=== PATIENT | female | born 1985 | race Caucasian/White ===

== ENCOUNTER → 2021-11-02 | Outpatient (CLI) | payer BC | END | disposition home or self-care (01) | LOC: LAB 20:56 | PROVIDERS: ATTEND Emergency Medicine | DX: Z53.9 Procedure and treatment not carried out, unspecified reason (principal) ==

== ENCOUNTER 2021-11-08 12:16 | Emergency (ER) | payer BC ==
[2021-11-08 12:38] VITALS: BP 132/89; PULSE 91; RESP 16; TEMP 97.6
[2021-11-08] MEDS ORDERED: Rhogam IMMUNE GLOBULIN 1,500 UNIT/1 ML IM ONE (13:02)
[2021-11-08 13:32] LABS: Appearance,Urine Clear (Clear); Bilirubin,Urine Negative (Negative); Blood,Urine Negative (Negative); Color,Urine Colorless; Glucose,Urine (UA) Negative (Negative); Ketones,Urine 1+ (Negative); Leukocyte Esterase,Urine Negative (Negative); Nitrite,Urine Negative (Negative); Protein,Urine Negative (Negative); Specific Gravity,Urine 1.006 (1.001-1.035); Urobilinogen,Urine <2.0 mg/dL (<2.0)
--- NOTE | 2021-11-08 13:59 | ED ---
Female Urogenital HPI - General Chief complaint: Vaginal Bleeding Stated complaint: 5 weeks ,COVID +,Bleeding and cramping Time Seen by Provider: 11/08/21 12:41 Source: patient, RN notes reviewed Limitations: no limitations - History of Present Illness Initial comments: This a 36-year-old female presents emergency Department chief complaint of vaginal bleeding early . 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 She is O- blood type. 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 She states she's on his symptoms for 24 hours mild nasal congestion cough, body aches. Patient states she's not receive RhoGAM for this . Patient states the bleeding is very mild denies any significant abdominal pain. Patient offers no complaints. - Related Data Previous Rx's Medication Instructions Recorded predniSONE 40 mg PO DAILY #8 tab 12/21/13 Allergies Allergy/AdvReac Type Severity Reaction Status Date / Time ofloxacin [From Floxin] Allergy Unknown Verified 11/08/21 12:38 Childhood Review of Systems ROS Statement: Those systems with pertinent positive or pertinent negative responses have been documented in the HPI. ROS Other: All systems not noted in ROS Statement are negative. Past Medical History Past Medical History: No Reported History History of Any Multi-Drug Resistant Organisms: None Reported Past Surgical History: Cholecystectomy, Tonsillectomy Additional Past Surgical History / Comment(s): IUD Past Psychological History: No Psychological Hx Reported Smoking Status: Never smoker Past Alcohol Use History: None Reported Past Drug Use History: None Reported General Exam Limitations: no limitations General appearance: alert, in no apparent distress Head exam: Present: atraumatic, normocephalic, normal inspection Neck exam: Present: normal inspection, full ROM. Absent: tenderness, meningismus, lymphadenopathy Respiratory exam: Present: normal lung sounds bilaterally. Absent: respiratory distress, wheezes, rales, rhonchi, stridor Cardiovascular Exam: Present: regular rate, normal rhythm, normal heart sounds. Absent: systolic murmur, diastolic murmur, rubs, gallop, clicks GI/Abdominal exam: Present: soft, normal bowel sounds. Absent: distended, tenderness, guarding, rebound, rigid Back exam: Absent: CVA tenderness (R), CVA tenderness (L) Neurological exam: Present: alert Skin exam: Present: warm, dry, intact, normal color. Absent: rash Course Vital Signs 11/08/21 12:32 Temperature 97.6 F Pulse Rate 91 Respiratory 16 Rate Blood Pressure 132/89 O2 Sat by Pulse 100 Oximetry Medical Decision Making - Medical Decision Making 36-year-old presented for vaginal bleeding early . Patients HCG continues to climb. Ultrasound shows possible early . Patient is diagnosed with threatened miscarriage. She'll have repeat hCG she was given RhoGAM. Return parameters discussed. - Lab Data Lab Results 11/08/21 11/08/21 11/08/21 Range/Units 13:05 13:14 13:15 HCG, Quant 1880.7 mIU/mL Urine Color Colorless Urine Appearance Clear (Clear) Urine pH 6.0 (5.0-8.0) Ur Specific [place] 1.006 (1.001-1.035) Urine Protein Negative (Negative) Urine Glucose (UA) Negative (Negative) Urine Ketones 1+ H (Negative) Urine Blood Negative (Negative) Urine Nitrite Negative (Negative) Urine Bilirubin Negative (Negative) Urine Urobilinogen <2.0 (<2.0) mg/dL Ur Leukocyte Esterase Negative (Negative) Blood Type O Negative Blood Type Recheck O Neg Bld Type Recheck Status No Antibody Screen NEGATIVE Spec Expiration Date 11/11/20212304 Disposition Clinical Impression: Threatened miscarriage in early Disposition: HOME SELF-CARE Condition: Stable Instructions (If sedation given, give patient instructions): Threatened Miscarriage (ED) Additional Instructions: Please return to the Emergency Department if symptoms worsen or any other concerns. Is patient prescribed a controlled substance at d/c from ED?: No Referrals: Magali Raymundo NPC [Nurse Practitioner] - 1-2 days Time of Disposition: 14:35
--- NOTE | 2021-11-08 14:24 | US ---
EXAMINATION TYPE: Transabdominal DATE OF EXAM: 11/08/2021 1:55 PM COMPARISON: NONE CLINICAL HISTORY: Pain, bleeding early Spotting and cramping clomid patient. EXAM PERFORMED: Transvaginal (TV) and Transabdominal (TA) EXAM MEASUREMENTS: GESTATIONAL AGE / DATING Physician Established: Not yet established Dates by LMP: ( 5 weeks/0 days) EDC: 07/11/2022 Dates by First Scan: No previous this is first scan Dates by Current Scan for: Unable to date by jeannine rojas's study MATERNAL ANATOMY Uterus: 9.3 x 4.8 x 6.2 cm Right Ovary: 4.6 x 2.4 x 5.3 cm Left Ovary: 4.7 x 3.5 x 3.9 cm Post CDS / Adnexa: wnl Presence of free fluid: small amount Presence of corpus luteal cyst: yes Presence of subchorionic bleed: no GESTATION / SURVEY CRL: 9 seen with certainty MSD: small fluid-filled sac seen in the endometrium. Beta HcG (if available): Not available at this time IMPRESSION: Small fluid-filled sac in the endometrial. No definite pole. Differential diagnosis would inclu de a normal too early to detect. Ectopic or missed could not be excluded . Correlate with serial beta hCG and pelvic ultrasound as clinically warranted.
== END 2021-11-08 14:39 | disposition home or self-care (01) ==
LOC: EC 12:16
DX: U07.1 COVID-19 (principal); O20.0 Threatened abortion; Z88.1 Allergy status to other antibiotic agents; Z3A.01 Less than 8 weeks gestation of pregnancy
CPT/HCPCS: 36415; 86900; 86901; 86850; 81003; 84702; 76801; 76817; 99284; 96372; J2790

== ENCOUNTER → 2021-11-10 | Outpatient (CLI) | payer BC | END | disposition home or self-care (01) | LOC: LABMAIN 13:46 | PROVIDERS: ATTEND Physician Assistant | DX: O20.0 Threatened abortion (principal); Z3A.00 Weeks of gestation of pregnancy not specified | CPT/HCPCS: 84702 ==

== ENCOUNTER 2022-04-18 23:35 | Outpatient (CLI) | payer BC ==
[2022-04-19] MEDS ORDERED: BETAMET ACET-BETAMETH SOD PHOS 6 MG/ML MDV IM SCH (00:15)
[2022-04-19] MEDS: NIFEdipine 10 MG CAP PO PRN ×3 (00:22→01:02)
[2022-04-19] MEDS: LACTATED RINGERS 1,000 ML IV SCH ×2 (00:23→00:34)
[2022-04-19] MEDS ORDERED: MAGNESIUM SULFATE-WATER PMX 4 GM in WATER FOR INJECTION 1 100ML.BAG IVPB ONE (01:27)
[2022-04-19 01:39] LABS: Appearance,Urine Clear (Clear); Bacteria,Urine Rare /hpf; Bilirubin,Urine Negative (Negative); Blood,Urine Negative (Negative); Color,Urine Light Yellow; Glucose,Urine (UA) Negative (Negative); Ketones,Urine 1+ (Negative); Leukocyte Esterase,Urine Moderate (Negative); Nitrite,Urine Negative (Negative); PH, Urine 6.5 (5.0-8.0); Protein,Urine Negative (Negative); RBC,Urine <1 /hpf (0-5); Specific Gravity,Urine 1.003 (1.001-1.035); Squamous Epithelial Cell,Urine <1 /hpf (0-4); Urobilinogen,Urine <2.0 mg/dL (<2.0); WBC,Urine 1 /hpf (0-5)
[2022-04-19] MEDS ORDERED: MAGNESIUM SULFATE-WATER PMX 20 GM in WATER FOR INJECTION 1 500ML.BAG IV SCH (02:00)
--- NOTE | 2022-04-19 02:18 | P.HPOB ---
History of Present Illness H&P Date: 04/19/22 Chief Complaint: contractions This is a 37 year old 6 para 2031 woman with an estimated due date of 07/11/2022 based on LMP consistent with first trimester ultrasound. She has known diamniotic dichorionic twins. She presents with contractions starting at approximately 9 PM on 04/18/2022. These progressed over approximately 2 hours and she presented to labor and delivery triage. At that time she was found to be osman every 2-3 minutes moderately and her cervix was 1 cm dilated thick and presenting part high. She received IV fluid rehydration and nifedipine tocolysis protocol. She received no relief in contraction frequency and over the course of 90 minutes her cervix changed to 2 cm dilated 50% effaced and presenting part in the -3 station. She received betamethasone upon presentation. Magnesium sulfate loading dose of 4 g was initiated. has been otherwise uncomplicated. She is known are H on negative and did have a positive anti-D antibody in the first trimester that was too weak to titer. She has not received Rh Ig yet. Recent ultrasound dated 04/11/2022 shows breech breech twins with twin a estimated weight 45th percentile and twin B estimated weight 74th percentile. Obstetric history significant for 3 early first trimester miscarriages, term normal spontaneous vaginal deliveries in 2010 and 2012. Laboratory data: Blood type O-, early antibody screen positive, too weak to titer, rubella immune, VDRL nonreactive, hepatitis B surface antigen negative, HIV negative, gonorrhea and clinic cultures negative, cystic fibrosis screening negative, hemoglobin A1c 5.0, maternal T 21 testing negative, glucose tolerance testing within normal limits. Review of Systems All systems: negative Past Medical History Past Medical History: No Reported History History of Any Multi-Drug Resistant Organisms: None Reported Past Surgical History: Cholecystectomy, Tonsillectomy Smoking Status: Never smoker Medications and Allergies Home Medications Medication Instructions Recorded Confirmed Type Aspirin [Vazalore] 162 mg PO DAILY 04/19/22 04/19/22 History Calcium Carbonate/Vitamin D3 1 tab PO DAILY 04/19/22 04/19/22 History [Calcium 500 mg Chewable Tablet] Cholecalciferol (Vitamin D3) 125 mcg PO DAILY 04/19/22 04/19/22 History [Vitamin D3 (125 MCG = 5,000 IU)] Vit No.179/Iron/Folic 1 tab PO DAILY 04/19/22 04/19/22 History [ Tablet] Sertraline HCl [Zoloft] 50 mg PO DAILY 04/19/22 04/19/22 History Allergies Allergy/AdvReac Type Severity Reaction Status Date / Time ofloxacin [From Floxin] Allergy Unknown Verified 04/19/22 00:01 Childhood Exam Intake and Output 04/18/22 04/18/22 04/19/22 14:59 22:59 06:59 Other: Weight 88.451 kg This is a pleasant, visibly gravid and somewhat uncomfortable-appearing female. HEENT exam is unremarkable. On lungs are clear to auscultation bilaterally and the heart is a regular rate and rhythm. The abdo men is gravid, soft and nontender. 1+ bilateral lower extremity edema. Cervical exam shows cervix 2 cm dilated, 50% effaced and the presenting part non-vertex in the -3 station. heart tones are category 1 for gestational age and she is now osman every 4-6 minutes status post magnesium bolus. Results Abnormal Lab Results - Last 24 Hours (Table) 04/19/22 Range/Units 00:36 Urine Ketones 1+ H (Negative) Ur Leukocyte Esterase Moderate H (Negative) Urine Bacteria Rare H (None) /hpf Assessment and Plan (1) 28 weeks gestation of Current Visit: Yes Status: Acute Code(s): Z3A.28 - 28 WEEKS GESTATION OF SNOMED Code(s): 67319026 (2) Dichorionic diamniotic twin gestation Current Visit: Yes Status: Acute Code(s): O30.049 - TWIN , DICHORIONIC/DIAMNIOTIC, UNSP TRIMESTER SNOMED Code(s): 429189546 (3) labor Current Visit: Yes Status: Acute Code(s): O60.00 - LABOR WITHOUT DELIVERY, UNSPECIFIED TRIMESTER SNOMED Code(s): 6049583 Plan: This is a 37-year-old 6 para 2032 woman with diamniotic dichorionic twins at 28 and one sevenths weeks gestation in labor. She is responding to the magnesium sulfate bolus with decreasing contraction frequency. Secondary to gestational age I recommended to the patient and her that we transfer to a tertiary care facility. She has an established relationship with [facility] and the case is discussed with the attending physician there who agrees to accept transport. With the transport have been reviewed with the patient and her and include progressive labor and remote possibility of unintended delivery. Believe the risks of this is minimal and the benefits of transfer outweigh this risk. Consent is obtained.
[2022-04-19 02:43] LABS: Basophils % (A) 0 %; Eosinophils # (A) 0.1 k/uL (0-0.7); Eosinophils % (A) 0 %; HCT 35.4 % (34.0-46.0); HGB 12.5 gm/dL (11.4-16.0); Lymphocytes # (A) 2.4 k/uL (1.0-4.8); Lymphocytes % (A) 20 %; MCH 32.3 pg (25.0-35.0); MCHC 35.2 g/dL (31.0-37.0); MCV 91.7 fL (80.0-100.0); Mean Platelet Volume 11.8; Monocytes # (A) 0.6 k/uL (0-1.0); Monocytes % (A) 5 %; Neutrophils # (A) 8.4 k/uL (1.3-7.7); Neutrophils % (A) 72 %; Platelet Count 184 k/uL (150-450); RBC 3.86 m/uL (3.80-5.40); RDW 12.6 % (11.5-15.5); WBC 11.7 k/uL (3.8-10.6)
[2022-04-19 03:01] VITALS: BP 123/92; PULSE 89; RESP 16; TEMP 98.1
== END 2022-04-19 02:36 | disposition short-term general hospital (02) ==
LOC: FBPOP 23:35
PROVIDERS: ATTEND Obstetrics & Gynecology
DX: O60.03 Preterm labor without delivery, third trimester (principal); O30.043 Twin pregnancy, dichorionic/diamniotic, third trimester; Z3A.28 28 weeks gestation of pregnancy; Z88.1 Allergy status to other antibiotic agents
CPT/HCPCS: 59025; 99215; 96361; 96365; 96372; 86900; 86901; 82731; 85025; 86850; 81001; J3475 ×2; J0702

== ENCOUNTER 2022-12-15 03:48 | Emergency (ER) | payer BC ==
[2022-12-15 03:57] VITALS: PULSE 75; RESP 18; TEMP 98
--- NOTE | 2022-12-15 04:22 | ED ---
Headache HPI - General Chief Complaint: Headache Stated Complaint: Headache, Facial Numbness Time Seen by Provider: 12/15/22 03:50 Source: RN notes reviewed, old records reviewed Mode of arrival: ambulatory Limitations: no limitations - History of Present Illness Initial Comments: This is a 37-year-old female to the emergency department for evaluation appears presented today for evaluation regards to persistent headaches. Patient states a little bit over the week ago symptoms began with cervical type pain in both of her arms she believes is related to recent of twins and excessive overuse. Started on Robaxin medication with no real help. This week she developed trigeminal nerve pain in the left side of her face burning tingling pins and needles as well as some numbness on the left side of her face. Tonight that progressed to occipital headache type pain. Pain the back of her head sharp type pain which is been persistent. Patient. Concerned over persistent symptoms MD Complaint: headache, "migraine" (occipital), other (recent trigeminal neuralgia) -: week(s) Onset Description: gradual Location: left, frontal, temporal, occipital, facial Severity: severe Severity scale (1-10): 8 Quality: sharp, intermittent Consistency: intermittent Improves With: nothing Worsens With: none Associated Symptoms: nausea Treatments Prior to Arrival: none - Related Data Home Medications Medication Instructions Recorded Confirmed Aspirin [Vazalore] 162 mg PO DAILY 04/19/22 04/19/22 Calcium Carbonate/Vitamin D3 1 tab PO DAILY 04/19/22 04/19/22 [Calcium 500 mg Chewable Tablet] Cholecalciferol (Vitamin D3) 125 mcg PO DAILY 04/19/22 04/19/22 [Vitamin D3 (125 MCG = 5,000 IU)] Vit No.179/Iron/Folic 1 tab PO DAILY 04/19/22 04/19/22 [ Tablet] Sertraline HCl [Zoloft] 50 mg PO DAILY 04/19/22 04/19/22 Allergies Allergy/AdvReac Type Severity Reaction Status Date / Time ofloxacin [From Floxin] Allergy Unknown Verified 12/15/22 03:57 Childhood Review of Systems ROS Statement: Those systems with pertinent positive or pertinent negative responses have been documented in the HPI. ROS Other: All systems not noted in ROS Statement are negative. Past Medical History Past Medical History: No Reported History History of Any Multi-Drug Resistant Organisms: None Reported Past Surgical History: Section Past Psychological History: No Psychological Hx Reported Smoking Status: Never smoker Past Alcohol Use History: None Reported Past Drug Use History: None Reported General Exam Limitations: no limitations General appearance: alert, in no apparent distress Head exam: Present: atraumatic, normocephalic, normal inspection Eye exam: Present: normal appearance, PERRL, EOMI. Absent: scleral icterus, conjunctival injection, periorbital swelling ENT exam: Present: normal exam, mucous membranes moist Neck exam: Present: normal inspection. Absent: tenderness, meningismus, lymphadenopathy Respiratory exam: Present: normal lung sounds bilaterally. Absent: respiratory distress, wheezes, rales, rhonchi, stridor Cardiovascular Exam: Present: regular rate, normal rhythm, normal heart sounds. Absent: systolic murmur, diastolic murmur, rubs, gallop, clicks GI/Abdominal exam: Present: soft, normal bowel sounds. Absent: distended, tenderness, guarding, rebound, rigid Extremities exam: Present: normal inspection, full ROM, normal capillary refill. Absent: tenderness, pedal edema, joint swelling, calf tenderness Back exam: Present: normal inspection Neurological exam: Present: alert, oriented X3, CN II-XII intact Psychiatric exam: Present: normal affect, normal mood Skin exam: Present: warm, dry, intact, normal color. Absent: rash Course Vital Signs 12/15/22 12/15/22 03:53 06:12 Temperature 98 F Pulse Rate 75 75 Respiratory 18 18 Rate Blood Pressure 142/104 122/80 O2 Sat by Pulse 99 98 Oximetry - Reevaluation(s) Reevaluation #1: 12/15/22 04:21 Medical records reviewed Reevaluation #2: 12/15/22 06:48 Headache is improving Reevaluation #3: Patient is informed of results and questions are answered Reevaluation #4: 12/15/22 04:21 Was pt. sent in by a medical professional or institution (, PA, MARKETING TRAFFIC COORDINATOR, urgent care, hospital, or care home...) When possible be specific @ -no Did you speak to anyone other than the patient for history (EMS, parent, family, police, friend...)? What history was obtained from this source @ -no Did you review nursing and triage notes (agree or disagree)? Why? @ -agree Are old charts reviewed (outside hosp., previous admission, EMS record, old EKG, old radiological studies, urgent care reports/EKG's, care home records)? Report findings @ -yes Differential Diagnosis (chest pain, altered mental status, abdominal pain women, abdominal pain men, vaginal bleeding, weakness, fever, dyspnea, syncope, headache, dizziness, GI bleed, back pain, seizure, CVA, palpatations, mental health, musculoskeletal)? @ -prior EKG interpreted by me (3pts min.). @ -no X-rays interpreted by me (1pt min.). @ -no CT interpreted by me (1pt min.). @ -yes U/S interpreted by me (1pt. min.). @ -no What testing was considered but not performed or refused? (CT, X-rays, U/S, labs)? Why? @ -none What meds were considered but not given or refused? Why? @ -none Did you discuss the management of the patient with other professionals (professionals i.e. , PA, MARKETING TRAFFIC COORDINATOR, lab, RT, psych nurse, social sciences department chair, criminal justice lawyer, teacher, air crew officer, case investigator)? Give summary @ -no Was smoking cessation discussed for >3mins.? @ -no Was critical care preformed (if so, how long)? @ -no Were there social determinants of health that impacted care today? How? (Homelessness, low income, unemployed, alcoholism, drug addiction, transportation, low edu. Level, literacy, decrease access to med. care, senior care, rehab)? @ -none Was there de-escalation of care discussed even if they declined (Discuss DNR or withdrawal of care, Hospice)? DNR status @ -no What co-morbidities impacted this encounter? (DM, HTN, Smoking, COPD, CAD, Cancer, CVA, ARF, Chemo, Hep., AIDS, mental health diagnosis, sleep apnea, morbid obesity)? @ -none Was patient admitted / discharged? Hospital course, mention meds given and route, prescriptions, significant lab abnormalities, going to OR and other pertinent info. @ - 37 female to the emergency department with headache today. Neurological symptoms and neuralgia pain. Patient concern for intracranial process. CT brain is negative for acute disease. Patient has no significant current neurological symptoms and no current headache. Patient can be discharged home Discharge Undiagnosed new problem with uncertain prognosis? @ -no Drug Therapy requiring intensive monitoring for toxicity (Heparin, Nitro, Insulin, Cardizem)? @ -no Were any procedures done? @ -no Diagnosis/symptom? @ -Headache Acute, or Chronic, or Acute on Chronic? @ -Acute Uncomplicated (without systemic symptoms) or Complicated (systemic symptoms)? @ -Complicated Side effects of treatment? @ -no Exacerbation, Progression, or Severe Exacerbation? @ -exacerbation Poses a threat to life or bodily function? How? (Chest pain, [place], [place], pneumonia, PE, COPD, DKA, ARF, appy, cholecystitis, CVA, Diverticulitis, Homicidal, Suicidal, threat to staff... and all critical care pts) @ -yes significant intracranial process with neurological symptoms Reevaluation #5: 12/15/22 04:21 Differential Headache: Migraine, tension, cluster, carbon monoxide, central venous thrombosis, pension karma temporal arteritis, acute closure glaucoma, intercranial hemorrhage, mastoiditis, sinusitis, head injury, this is not meant to be an all-inclusive list. Medical Decision Making - Medical Decision Making 37 female to the emergency department with headache today. Neurological symptoms and neuralgia pain. Patient concern for intracranial process. CT brain is negative for acute disease. Patient has no significant current neurological symptoms and no current headache. Patient can be discharged home - Radiology Data Radiology results: report reviewed (CT brain is negative for acute disease interpreted by me), image reviewed Disposition Clinical Impression: Headache Disposition: HOME SELF-CARE Condition: Good Instructions (If sedation given, give patient instructions): Acute Headache (ED) Is patient prescribed a controlled substance at d/c from ED?: No Referrals: Nonstaff,Physician [Primary Care Provider] - 1-2 days Time of Disposition: 06:45
[2022-12-15 06:13] VITALS: BP 122/80
--- NOTE | 2022-12-15 06:56 | CT ---
EXAMINATION TYPE: CT brain wo con CT DLP: 1100.4 mGycm, Automated exposure control for dose reduction was used. DATE OF EXAM: 12/15/2022 4:32 AM COMPARISON: None. CLINICAL INDICATION:Female, 37 years old with history of pain, TECHNIQUE: Brain: Multiple axial CT images of the brain were obtained without IV contrast. Coronal and sagittal reformats reviewed. FINDINGS: Brain: Extra-axial spaces: No abnormal extra-axial fluid collections. Ventricular system: Within normal limits Cerebral parenchyma: No acute intraparenchymal hemorrhage or mass effect. The byers-white junction is well differentiated. Cerebellum: Unremarkable. Mass effect: No evidence of midline shift. Intracranial vasculature: unremarkable Soft tissues: Normal. Calvarium/osseous structures: No depressed skull fracture. Paranasal sinuses and mastoid air cells: Mastoid air cells are clear. Likely 1.8 cm mucous retention cyst within the right maxillary sinus. Visualized orbits: Orbital contents are intact. IMPRESSION: No acute intracranial process.
== END 2022-12-15 06:52 | disposition home or self-care (01) ==
LOC: EC 03:48
DX: R51.9 Headache, unspecified (principal); G50.0 Trigeminal neuralgia; Z79.82 Long term (current) use of aspirin; Z88.1 Allergy status to other antibiotic agents
CPT/HCPCS: 70450; 99284

== ENCOUNTER 2023-12-25 08:29 | Observation (INO) | payer BC ==
--- NOTE | 2023-12-25 08:49 | ED ---
General Adult HPI - General Chief complaint: Arrhythmia/Palpitations Stated complaint: Vomiting Time Seen by Provider: 12/25/23 08:38 Source: patient, RN notes reviewed Mode of arrival: ambulatory Limitations: no limitations - History of Present Illness Initial comments: dec appetite and n/v since zepbound second dose. sx started friday. epigastric burning. -: days(s) Location: abdomen Severity scale (1-10): 7 Quality: burning Consistency: constant Improves with: none Worsens with: none Associated Symptoms: nausea/vomiting Treatments Prior to Arrival: other (zofran oral) - Related Data Home Medications Medication Instructions Recorded Confirmed Aspirin [[place]] 162 mg PO DAILY 04/19/22 04/19/22 Calcium Carbonate/Vitamin D3 1 tab PO DAILY 04/19/22 04/19/22 [Calcium 500 mg Chewable Tablet] Cholecalciferol (Vitamin D3) 125 mcg PO DAILY 04/19/22 04/19/22 [Vitamin D3 (125 MCG = 5,000 IU)] Vit No.179/Iron/Folic 1 tab PO DAILY 04/19/22 04/19/22 [ Tablet] Sertraline HCl [Zoloft] 50 mg PO DAILY 04/19/22 04/19/22 Allergies Allergy/AdvReac Type Severity Reaction Status Date / Time No Known Allergies Allergy Verified 12/25/23 08:35 Review of Systems ROS Statement: Those systems with pertinent positive or pertinent negative responses have been documented in the HPI. ROS Other: All systems not noted in ROS Statement are negative. Constitutional: Denies: fever Eyes: Denies: eye pain Cardiovascular: Denies: chest pain Endocrine: Denies: fatigue Gastrointestinal: Reports: as per HPI, nausea, vomiting. Denies: diarrhea, constipation Past Medical History Past Medical History: No Reported History History of Any Multi-Drug Resistant Organisms: None Reported Past Surgical History: Adenoidectomy, Section, Cholecystectomy, Tonsillectomy Past Psychological History: ADD/ADHD, Anxiety, Depression Smoking Status: Never smoker Past Alcohol Use History: None Reported Past Drug Use History: None Reported General Exam Limitations: no limitations General appearance: alert, in no apparent distress Head exam: Present: normocephalic Eye exam: Present: normal appearance Neck exam: Present: normal inspection Respiratory exam: Present: normal lung sounds bilaterally Cardiovascular Exam: Present: tachycardia Expanded Peripheral pulses: 2+: Dorsalis Pedis (R), Dorsalis Pedis (L) GI/Abdominal exam: Present: soft, tenderness (mild epigastric). Absent: distended Extremities exam: Present: normal inspection Neurological exam: Present: alert Psychiatric exam: Present: normal affect, normal mood Skin exam: Present: normal color Course Vital Signs 12/25/23 12/25/23 12/25/23 08:31 09:45 11:00 Temperature 97.8 F Pulse Rate 130 H 92 80 Respiratory 20 18 18 Rate Blood Pressure 118/78 102/68 113/70 O2 Sat by Pulse 99 98 98 Oximetry EKG Findings - EKG Results: EKG: interpreted by ERMD, sinus rhythm, normal axis, normal QRS, normal ST/T Medical Decision Making - Medical Decision Making Was pt. sent in by a medical professional or institution (, PA, VERTICAL PUNCH OPERATOR, urgent care, hospital, or [facility]...) When possible be specific @ -No Did you speak to anyone other than the patient for history (EMS, parent, family, police, friend...)? What history was obtained from this source @ -No Did you review nursing and triage notes (agree or disagree)? Why? @ -I reviewed and agree with nursing and triage notes Were old charts reviewed (outside hosp., previous admission, EMS record, old EKG, old radiological studies, urgent care reports/EKG's, [facility] records)? Report findings @ -No old charts were reviewed Differential Diagnosis (chest pain, altered mental status, abdominal pain women, abdominal pain men, vaginal bleeding, weakness, fever, dyspnea, syncope, headache, dizziness, GI bleed, back pain, seizure, CVA, palpatations, mental health, musculoskeletal)? @ -Differential Abdominal Pain Women: Appendicitis, Cholecystitis, diverticulosis, ischemic bowel, pancreatitis, hepatitis, UTI, gastroenteritis, AAA, incarcerated hernia, bowel obstruction, constipation, inflammatory bowel, hepatitis, peptic ulcer disease, splenic infarction, perforated viscus, vulvitis, ovarian torsion, PID, kidney stone, placenta abruption, this is not meant to be an all-inclusive list EKG interpreted by me (3pts min.). @ -As above X-rays interpreted by me (1pt min.). @ -cxr and abdominal x-ray showed no acute process CT interpreted by me (1pt min.). @ -None done U/S interpreted by me (1pt. min.). @ -None done What testing was considered but not performed or refused? (CT, X-rays, U/S, labs)? Why? @ -None What meds were considered but not given or refused? Why? @ -None Did you discuss the management of the patient with other professionals (professionals i.e. Dr., PA, VERTICAL PUNCH OPERATOR, lab, RT, psych nurse, social scientist, tail sawyer, teacher, state wildlife officer, case sealer)? Give summary @ -Case was discussed with Dr. Braden who will admit his patient. Was smoking cessation discussed for >3mins.? @ -No Was critical care preformed (if so, how long)? @ -No Were there social determinants of health that impacted care today? How? (Homelessness, low income, unemployed, alcoholism, drug addiction, transportation, low edu. Level, literacy, decrease access to med. care, [facility], rehab)? @ -No Was there de-escalation of care discussed even if they declined (Discuss DNR or withdrawal of care, Hospice)? DNR status @ -No What co-morbidities impacted this encounter? (DM, HTN, Smoking, COPD, CAD, Cancer, CVA, ARF, Chemo, Hep., AIDS, mental health diagnosis, sleep apnea, morbid obesity)? @ -Patient on new GLP-1 Was patient admitted / discharged? Hospital course, mention meds given and rou te, prescriptions, significant lab abnormalities, going to OR and other pertinent info. @ -Patient presents with loss of appetite and nausea and vomiting. Patient has low CO2 and high anion gap. Gap improved with fluids however CO2 remains low. Patient will be admitted for further fluids. [place] orders written Undiagnosed new problem with uncertain prognosis? @ -No Drug Therapy requiring intensive monitoring for toxicity (Heparin, Nitro, Insulin, Cardizem)? @ -No Were any procedures done? @ -No Diagnosis/symptom? @ -Metabolic acidosis, nausea Acute, or Chronic, or Acute on Chronic? @ -Acute, acute Uncomplicated (without systemic symptoms) or Complicated (systemic symptoms)? @ -Default Side effects of treatment? @ -No Exacerbation, Progression, or Severe Exacerbation? @ -No Poses a threat to life or bodily function? How? (Chest pain, [place], [place], pneumonia, PE, COPD, DKA, ARF, appy, cholecystitis, CVA, Diverticulitis, Homicidal, Suicidal, threat to staff... and all critical care pts) @ -Threat to metabolic function - Lab Data Result diagrams: 12/25/23 09:07 12/25/23 10:24 Lab Results 12/25/23 12/25/23 12/25/23 Range/Units 09:07 09:07 09:07 WBC 8.8 (3.8-10.6) k/uL RBC 5.13 (3.80-5.40) m/uL Hgb 15.3 (11.4-16.0) gm/dL Hct 46.4 H (34.0-46.0) % MCV 90.3 (80.0-100.0) fL MCH 29.8 (25.0-35.0) pg MCHC 32.9 (31.0-37.0) g/dL RDW 12.8 (11.5-15.5) % Plt Count 246 (150-450) k/uL MPV 8.9 Neutrophils % 85 % Lymphocytes % 11 % Monocytes % 3 % Eosinophils % 1 % Basophils % 0 % Neutrophils # 7.5 (1.3-7.7) k/uL Lymphocytes # 1.0 (1.0-4.8) k/uL Monocytes # 0.2 (0-1.0) k/uL Eosinophils # 0.1 (0-0.7) k/uL Basophils # 0.0 (0-0.2) k/uL Sodium 141 (137-145) mmol/L Potassium 4.6 (3.5-5.1) mmol/L Chloride 111 H (98-107) mmol/L Carbon Dioxide 8 L* (22-30) mmol/L Anion Gap 22 mmol/L BUN 10 (7-17) mg/dL Creatinine 0.73 (0.52-1.04) mg/dL Est GFR (CKD-EPI)AfAm >90 (>60 ml/min/1.73 sqM) Est GFR (CKD-EPI)NonAf >90 (>60 ml/min/1.73 sqM) Glucose 69 L (74-99) mg/dL Calcium 10.3 H (8.4-10.2) mg/dL Total Bilirubin 0.6 (0.2-1.3) mg/dL AST 25 (14-36) U/L ALT 24 (4-34) U/L Alkaline Phosphatase 124 (38-126) U/L Troponin I (0.000-0.034) ng/mL Total Protein 8.1 (6.3-8.2) g/dL Albumin 5.1 H (3.5-5.0) g/dL Amylase 35 (30-110) U/L Lipase 40 (23-300) U/L HCG, Quant <2.4 mIU/mL Urine Color Light Red Urine Appearance Cloudy H (Clear) Urine pH 5.5 (5.0-8.0) Ur Specific [place] 1.027 (1.001-1.035) Urine Protein 3+ H (Negative) Urine Glucose (UA) Negative (Negative) Urine Ketones 4+ H (Negative) Urine Blood Large H (Negative) Urine Nitrite Negative (Negative) Urine Bilirubin Negative (Negative) Urine Urobilinogen <2.0 (<2.0) mg/dL Ur Leukocyte Esterase Small H (Negative) Urine RBC >182 H (0-5) /hpf Urine WBC 35 H (0-5) /hpf Ur Squamous Epith Cells 25 H (0-4) /hpf Urine Bacteria Rare H (None) /hpf Urine Mucus Occasional H (None) /hpf 12/25/23 12/25/23 Range/Units 09:07 10:24 WBC (3.8-10.6) k/uL RBC (3.80-5.40) m/uL Hgb (11.4-16.0) gm/dL Hct (34.0-46.0) % MCV (80.0-100.0) fL MCH (25.0-35.0) pg MCHC (31.0-37.0) g/dL RDW (11.5-15.5) % Plt Count (150-450) k/uL MPV Neutrophils % % Lymphocytes % % Monocytes % % Eosinophils % % Basophils % % Neutrophils # (1.3-7.7) k/uL Lymphocytes # (1.0-4.8) k/uL Monocytes # (0-1.0) k/uL Eosinophils # (0-0.7) k/uL Basophils # (0-0.2) k/uL Sodium 140 (137-145) mmol/L Potassium 4.8 (3.5-5.1) mmol/L Chloride 114 H (98-107) mmol/L Carbon Dioxide 10 L (22-30) mmol/L Anion Gap 16 mmol/L BUN 8 (7-17) mg/dL Creatinine 0.64 (0.52-1.04) mg/dL Est GFR (CKD-EPI)AfAm >90 (>60 ml/min/1.73 sqM) Est GFR (CKD-EPI)NonAf >90 (>60 ml/min/1.73 sqM) Glucose 57 L (74-99) mg/dL Calcium 8.8 (8.4-10.2) mg/dL Total Bilirubin 0.5 (0.2-1.3) mg/dL AST 20 (14-36) U/L ALT 20 (4-34) U/L Alkaline Phosphatase 105 (38-126) U/L Troponin I <0.012 (0.000-0.034) ng/mL Total Protein 6.7 (6.3-8.2) g/dL Albumin 4.1 (3.5-5.0) g/dL Amylase (30-110) U/L Lipase (23-300) U/L HCG, Quant mIU/mL Urine Color Urine Appearance (Clear) Urine pH (5.0-8.0) Ur Specific [place] (1.001-1.035) Urine Protein (Negative) Urine Glucose (UA) (Negative) Urine Ketones (Negative) Urine Blood (Negative) Urine Nitrite (Negative) Urine Bilirubin (Negative) Urine Urobilinogen (<2.0) mg/dL Ur Leukocyte Esterase (Negative) Urine RBC (0-5) /hpf Urine WBC (0-5) /hpf Ur Squamous Epith Cells (0-4) /hpf Urine Bacteria (None) /hpf Urine Mucus (None) /hpf Disposition Clinical Impression: Metabolic acidosis, Nausea and vomiting Disposition: ADMITTED IP TO THIS HOSP Is patient prescribed a controlled substance at d/c from ED?: No Referrals: Juventino Guaman MD [Primary Care Provider] - 1-2 days Time of Disposition: 11:34
[2023-12-25] MEDS: SODIUM CHLORIDE 0.9% 1,000 ML IV STA ×2 (08:59→10:28)
[2023-12-25] MEDS: ONDANSETRON 4 MG/2 ML VIAL IVP STA ×2 (09:00→10:27)
[2023-12-25] MEDS: SODIUM CHLORIDE 0.9% 500 ML 500 ML IV STA (09:00)
[2023-12-25] MEDS: FAMOTIDINE 20 MG/2 ML VIAL IV STA (09:00)
[2023-12-25 09:17] LABS: Basophils % (A) 0 %; Eosinophils # (A) 0.1 k/uL (0-0.7); Eosinophils % (A) 1 %; HCT 46.4 % (34.0-46.0); HGB 15.3 gm/dL (11.4-16.0); Lymphocytes % (A) 11 %; MCH 29.8 pg (25.0-35.0); MCHC 32.9 g/dL (31.0-37.0); MCV 90.3 fL (80.0-100.0); Mean Platelet Volume 8.9; Monocytes # (A) 0.2 k/uL (0-1.0); Monocytes % (A) 3 %; Neutrophils # (A) 7.5 k/uL (1.3-7.7); Neutrophils % (A) 85 %; Platelet Count 246 k/uL (150-450); RBC 5.13 m/uL (3.80-5.40); RDW 12.8 % (11.5-15.5); WBC 8.8 k/uL (3.8-10.6)
[2023-12-25 09:28] LABS: ALT 24 U/L (4-34); AST 25 U/L (14-36); African American GFR (CKD) >90 (>60 ml/min/1.73 sqM); Albumin 5.1 g/dL (3.5-5.0); Alkaline Phosphatase 124 U/L (38-126); Amylase 35 U/L (30-110); Anion Gap 22 mmol/L; Blood Urea Nitrogen 10 mg/dL (7-17); Calcium 10.3 mg/dL (8.4-10.2); Chloride 111 mmol/L (98-107); Glucose 69 mg/dL (74-99); Lipase 40 U/L (23-300); Non-African American GFR(CKD) >90 (>60 ml/min/1.73 sqM); Potassium 4.6 mmol/L (3.5-5.1); Sodium 141 mmol/L (137-145); Total Bilirubin 0.6 mg/dL (0.2-1.3); Total Protein 8.1 g/dL (6.3-8.2)
[2023-12-25 09:31] LABS: Carbon Dioxide 8 mmol/L (22-30)
[2023-12-25 09:33] LABS: Appearance,Urine Cloudy (Clear); Bacteria,Urine Rare /hpf; Bilirubin,Urine Negative (Negative); Blood,Urine Large (Negative); Color,Urine Light Red; Glucose,Urine (UA) Negative (Negative); Ketones,Urine 4+ (Negative); Leukocyte Esterase,Urine Small (Negative); Mucus,Urine Occasional /hpf; Nitrite,Urine Negative (Negative); PH, Urine 5.5 (5.0-8.0); Protein,Urine 3+ (Negative); RBC,Urine >182 /hpf (0-5); Specific Gravity,Urine 1.027 (1.001-1.035); Squamous Epithelial Cell,Urine 25 /hpf (0-4); Urobilinogen,Urine <2.0 mg/dL (<2.0); WBC,Urine 35 /hpf (0-5)
[2023-12-25 09:44] LABS: HCG,Quantitative Serum <2.4 mIU/mL
--- NOTE | 2023-12-25 10:14 | XR ---
EXAMINATION TYPE: XR KUB DATE OF EXAM: 12/25/2023 COMPARISON: NONE HISTORY: Pain TECHNIQUE: Single supine KUB image of the abdomen is obtained FINDINGS: Small bowel demonstrates no evidence for dilatation or air fluid levels. Gas and fecal material is seen in non-distended colon. No convincing evidence for pneumoperitoneum. No unusual calcifications. The lung bases are clear. Cholecystectomy clips are in place. The osseous structures are intact. IMPRESSION: 1. Overall nonobstructive bowel gas pattern.
--- NOTE | 2023-12-25 10:14 | XR ---
EXAMINATION TYPE: XR chest 2V DATE OF EXAM: 12/25/2023 COMPARISON: 04/17/2011 HISTORY: Chest pain TECHNIQUE: Frontal and lateral views of the chest are obtained. FINDINGS: There is no focal air space opacity. No evidence for pneumothorax. No pleural effusion. The cardiac silhouette size is within normal limits. The osseous structures are grossly intact. IMPRESSION: 1. No acute cardiopulmonary process.
[2023-12-25 10:48] LABS: ALT 20 U/L (4-34); AST 20 U/L (14-36); African American GFR (CKD) >90 (>60 ml/min/1.73 sqM); Albumin 4.1 g/dL (3.5-5.0); Alkaline Phosphatase 105 U/L (38-126); Anion Gap 16 mmol/L; Blood Urea Nitrogen 8 mg/dL (7-17); Calcium 8.8 mg/dL (8.4-10.2); Carbon Dioxide 10 mmol/L (22-30); Chloride 114 mmol/L (98-107); Glucose 57 mg/dL (74-99); Non-African American GFR(CKD) >90 (>60 ml/min/1.73 sqM); Potassium 4.8 mmol/L (3.5-5.1); Sodium 140 mmol/L (137-145); Total Bilirubin 0.5 mg/dL (0.2-1.3); Total Protein 6.7 g/dL (6.3-8.2)
[2023-12-25] MEDS: ACETAMINOPHEN IV (For NPO) 1,000 MG in EMPTY BAG 1 BAG IVPB STA (11:12)
[2023-12-25] MEDS ORDERED: ONDANSETRON 4 MG/2 ML VIAL IVP PRN (11:35)
[2023-12-25] MEDS ORDERED: PROCHLORPERAZINE 5 MG TAB PO PRN (11:35)
[2023-12-25] MEDS ORDERED: NALOXONE 0.4 MG/ML 1 ML VIAL IV PRN (11:35)
[2023-12-25] MEDS: PANTOPRAZOLE 40 MG/10 ML VIAL IV SCH (11:52)
[2023-12-25] MEDS: METOCLOPRAMIDE 5 MG/ML 2 ML VIAL IVP STA (11:52)
[2023-12-25] MEDS: SODIUM CHLORIDE 0.9% 1,000 ML IV SCH (11:52)
[2023-12-25] MEDS: PROCHLORPERAZINE INJ 10 MG/2 ML VIAL IVP PRN (16:21)
[2023-12-25] MEDS ORDERED: NON FORMULARY DRUG (Dextroamphetamine/Amphetamine [Adderall Xr 20 Mg Capsule] 20 MG Cap.Er PO PRN (16:29)
[2023-12-25] MEDS: METOCLOPRAMIDE 5 MG/ML 2 ML VIAL IVP SCH (17:15)
[2023-12-25 17:37] LABS: Glucose,Whole Blood 56 mg/dL (70-110)
[2023-12-25] MEDS: DEXTROSE 5% IN WATER 1,000 ML with SODIUM BICARB (1 MEQ/ML) 150 ML IV SCH (17:44)
[2023-12-25 18:07] LABS: Glucose,Whole Blood 61 mg/dL (70-110)
[2023-12-25 18:50] LABS: Glucose,Whole Blood 74 mg/dL (70-110)
[2023-12-25 20:38] LABS: Glucose,Whole Blood 80 mg/dL (70-110)
[2023-12-25] MEDS: hydrOXYzine HCL 25 MG TAB PO PRN (21:21)
[2023-12-25] MEDS: SERTRALINE 100 MG TAB PO SCH (21:21)
--- NOTE | 2023-12-25 21:31 | P.HPIM ---
History of Present Illness H&P Date: 12/25/23 HISTORY OF PRESENT ILLNESS: 38-year-old with active medical history of mild obesity, hyperglycemia, mild ADD, anxiety, depression, who apparently was started on GLP-1 product few months ago for some weight loss did not get the medication initially last week found it at the pharmacy for zepbound 5 mg weekly. She took the first dose a week ago did not feel well has slight side effect and symptom consistent with change in bowel habit mild diarrhea bloating sensation and nausea But eventually her symptoms had improved. This week patient has taking it on Friday and ended up for the last 48 hours having persistent sign and symptom of intractable nausea vomiting slight abdominal discomfort with severe diarrhea with worsening symptoms on and off generalized weakness fatigue not been able to ambulate or walk symptom become much worse ended up coming to the emergency department at [facility] were seen and evaluated. At the presentation her hematocrit was 46.4 with chloride was 114 carbon dioxide was 10 with originally normal lactic acid blood sugar was quite bit low at 57. Patient was hydrated and treated for several hours with reassessment done by the emergency room continue to show significant low carbon dioxide level patient is not improving down much she still having difficult time ambulating and difficult time leaving her bed and having severe intractable nausea requiring antiemetic medication every few hours to keep her symptoms under control. We decided to keep patient hydrated admit patient to the hospital at this point we will watch for any further complication. REVIEW OF SYSTEMS: CONSTITUTIONAL: Well-developed no acute respiratory distress. EYES: No icterus sclerae, no conjunctivitis. EARS, NOSE, MOUTH, THROAT, and FACE: No sore throat, lymphadenopathy, carotid bruits or deformity. RESPIRATORY: No SOB cough or wheezes. CARDIOVASCULAR: No CP, Palpitation, PND, Orthopnea, or angina. GASTROINTESTINAL: Abdominal discomfort nausea and vomiting positive diarrhea. GENITOURINARY: Negative for Hematuria or UTI, no kidney stones. INTEGUMENT/BREAST: Negative for any muscular injury with mild osteoarthritis.. HEMATOLOGIC/LYMPHATIC: Negative for bleed or purpura. MUSCULOSKELTAL: Negative for Myalgia or arthralgia. NEURLOGICAL: No LOC, Sz or syncope, blurred vision dizziness or abnormality.. BEHAVIORAL/PSYCH: Negative. ENDOCRINE: Negative. PHYSICAL EXAMINATION: General Appearance: Alert, cooperative, no distress, appears stated age. Neck HEENT: Supple, no lymphadenopathy, no thyroid enlargement, no carotid bruits. Lungs: Clear to auscultation without crackles or wheezes no rhonchi, no deformity. Chest Wall: Chest wall normal expansion with deep inspiration no tenderness and no deformity was found on exam, no costochondral pain or discomfort. Heart: Regular rate and rhythm, S1, S2 normal, no murmur, rub or gallop. Back: Symmetric, no curvature, ROM normal, no CVA tenderness. Abdomen: Soft positive bowel sounds slight discomfort epigastric no rebound rig idity or masses. Extremities: Extremities normal, atraumatic, no cyanosis or edema. Pulses: 2+ and symmetric. Skin: Skin color, texture, tugor normal, no rashes or lesions. Neurologic: Alert oriented x3 cranial nerves II through XII intact, no motor deficit, no abnormal balance or gait. ASSESSMENT AND PLAN: _Intractable nausea vomiting diarrhea: Symptoms most likely secondary to GLP-1 product with mostly Zepbound medication be stopped for now we will watch patient's symptoms carefully continue hydration and antiemetic medication. _Severe low carbon dioxide level and with metabolic acidosis and severely abnormal anion gap: Continue hydration again watch symptoms carefully will consult nephrology. Adding sodium Bicarbonate will be more helpful. _Severe hypoglycemia: Most likely caused by the GLP-1 product will continue Accu-Chek sliding scales coverage continue hydration currently and continue D5.45 specially if she is low. _Mild ADD: Has been on Adderall XR 20 mg daily continue medication. _ Depression: Continue Zoloft at 100 mg daily. _Severe gastritis: Will continue pantoprazole 40 mg IV continue Compazine and Zofran IV as well to control symptoms. _Significant hematuria with significant amount of white blood cell this should be can be treated as a UTI by using either Rocephin. _GI prophylaxis: Continue pantoprazole. _DVT prophylaxis: Early mobilization and knee-high JEFFY hose. Admit patient to the inpatient service for 1-2 night stay. _ Past Medical History Past Medical History: No Reported History History of Any Multi-Drug Resistant Organisms: None Reported Past Surgical History: Adenoidectomy, Section, Cholecystectomy, Tonsillectomy Past Anesthesia/Blood Transfusion Reactions: No Reported Reaction Past Psychological History: ADD/ADHD, Anxiety, Depression Smoking Status: Never smoker Past Alcohol Use History: None Reported Past Drug Use History: None Reported Medications and Allergies Home Medications Medication Instructions Recorded Confirmed Type Dextroamphetamine/Amphetamine 20 mg PO DAILY PRN 12/25/23 12/25/23 History [Adderall Xr 20 mg Capsule] Sertraline [Zoloft] 100 mg PO DAILY 12/25/23 12/25/23 History Tirzepatide [Zepbound] 5 mg SQ MO 12/25/23 12/25/23 History Allergies Allergy/AdvReac Type Severity Reaction Status Date / Time No Known Allergies Allergy Verified 12/25/23 12:03 Physical Exam Vitals: Vital Signs Temp Pulse Pulse Resp BP BP Pulse Ox 12/25/23 12:25 97.6 F 97 16 119/77 99 12/25/23 11:00 80 18 113/70 98 12/25/23 09:45 92 18 102/68 98 12/25/23 08:31 97.8 F 130 H 20 118/78 99 Intake and Output 12/25/23 12/25/23 12/25/23 06:59 14:59 22:59 Other: Voiding Method Toilet Weight 84.822 kg Results CBC & Chem 7: 12/25/23 09:07 12/25/23 10:24 Labs: Abnormal Lab Results - Last 24 Hours (Table) 12/25/23 12/25/23 12/25/23 Range/Units 09:07 09:07 09:07 Hct 46.4 H (34.0-46.0) % Chloride 111 H (98-107) mmol/L Carbon Dioxide 8 L* (22-30) mmol/L Glucose 69 L (74-99) mg/dL POC Glucose (mg/dL) (70-110) mg/dL Calcium 10.3 H (8.4-10.2) mg/dL Albumin 5.1 H (3.5-5.0) g/dL Urine Appearance Cloudy H (Clear) Urine Protein 3+ H (Negative) Urine Ketones 4+ H (Negative) Urine Blood Large H (Negative) Ur Leukocyte Esterase Small H (Negative) Urine RBC >182 H (0-5) /hpf Urine WBC 35 H (0-5) /hpf Ur Squamous Epith Cells 25 H (0-4) /hpf Urine Bacteria Rare H (None) /hpf Urine Mucus Occasional H (None) /hpf 12/25/23 12/25/23 Range/Units 10:24 17:36 Hct (34.0-46.0) % Chloride 114 H (98-107) mmol/L Carbon Dioxide 10 L (22-30) mmol/L Glucose 57 L (74-99) mg/dL POC Glucose (mg/dL) 56 L (70-110) mg/dL Calcium (8.4-10.2) mg/dL Albumin (3.5-5.0) g/dL Urine Appearance (Clear) Urine Protein (Negative) Urine Ketones (Negative) Urine Blood (Negative) Ur Leukocyte Esterase (Negative) Urine RBC (0-5) /hpf Urine WBC (0-5) /hpf Ur Squamous Epith Cells (0-4) /hpf Urine Bacteria (None) /hpf Urine Mucus (None) /hpf Thrombosis Risk Factor Assmnt - Choose All That Apply Any of the Below Risk Factors Present?: Yes Each Factor Represents 1 point: Age 41-60 years, Obesity (BMI >25) Other Risk Factors: No Thrombosis Risk Factor Assessment Total Risk Factor Score: 2 Thrombosis Risk Factor Assessment Level: Low Risk
[2023-12-26 07:59] LABS: Ethanol Negative (Negative); Isopropanol Negative (Negative)
[2023-12-26 08:51] LABS: ALT 17 U/L (8-44); AST 15 U/L (13-35); Albumin/Globulin Ratio 2.22 Ratio (1.60-3.17); Alkaline Phosphatase 103 U/L (41-126); BUN/Creat Ratio <7.00 Ratio (12.00-20.00); Blood Urea Nitrogen <3.5 mg/dL (9.0-27.0); Calcium 8.4 mg/dL (8.7-10.3); Carbon Dioxide 16.3 mmol/L (21.6-31.8); Chloride 107 mmol/L (96-109); Globulin 1.8 g/dL (1.6-3.3); Glucose 85 mg/dL (70-110); Lipase 26 U/L (14-63); Magnesium 1.7 mg/dL (1.5-2.4); Potassium 3.8 mmol/L (3.5-5.5); Sodium 136 mmol/L (135-145); Total Bilirubin 0.3 mg/dL (0.3-1.2); Total Protein 5.8 g/dL (6.2-8.2)
[2023-12-26] MEDS ORDERED: SERTRALINE 100 MG TAB PO SCH (09:00)
--- NOTE | 2023-12-26 09:36 | US ---
EXAMINATION TYPE: US kidneys/renal and bladder DATE OF EXAM: 12/25/2023 COMPARISON: XR KUB today CLINICAL INDICATION: Female, 38 years old with history of acidosis EXAM MEASUREMENTS: Right Kidney: 11.2 x 5.1 x 4.9 cm Left Kidney: 10.8 x 4.7 x 3.8 cm Right Kidney: wnl Left Kidney: wnl Bladder: anechoic, wnl Bilateral Jets seen: Yes IMPRESSION: No hydronephrosis. No specific abnormality seen.
--- NOTE | 2023-12-26 09:58 | P.NPCON ---
History of Present Illness - History of Present Illness 38-year-old female seen in renal consultation for metabolic acidosis and low bicarb. Patient has past medical history of mild obesity, hyperglycemia, mild ADD, anxiety, and depression. Patient has a baseline creatinine of approximately 0.8. Creatinine on admission was stable at 0.73. Acetone found to be 10. Patient came to the hospital due to severe nausea and vomiting after starting Zepbound approximately 2 weeks ago. Patient admits to severe nausea, and vomiting. She is currently receiving 150 mL bicarb drip 100 cc/h. Per review of patient medication list only nephrotoxic agent is Zepbound. Patient has not received any IV contrast or dye since being admitted. Patient has a history of hyperglycemia. Past Medical History Past Medical History: No Reported History History of Any Multi-Drug Resistant Organisms: None Reported Past Surgical History: Adenoidectomy, Section, Cholecystectomy, Tonsillectomy Past Anesthesia/Blood Transfusion Reactions: No Reported Reaction Past Psychological History: ADD/ADHD, Anxiety, Depression Smoking Status: Never smoker Past Alcohol Use History: None Reported Past Drug Use History: None Reported Medications and Allergies Home Medications Medication Instructions Recorded Confirmed Type Dextroamphetamine/Amphetamine 20 mg PO DAILY PRN 12/25/23 12/25/23 History [Adderall Xr 20 mg Capsule] Sertraline [Zoloft] 100 mg PO DAILY 12/25/23 12/25/23 History Ondansetron [Zofran] 4 mg PO Q8HR PRN #20 tab 12/26/23 Rx Pantoprazole [Protonix] 40 mg PO DAILY #30 tab 12/26/23 Rx Sodium Bicarbonate Tab 650 mg PO BID #30 tab 12/26/23 Rx Allergies Allergy/AdvReac Type Severity Reaction Status Date / Time No Known Allergies Allergy Verified 12/25/23 12:03 Physical Exam Vitals: Vital Signs Temp Pulse Pulse Resp BP BP Pulse Ox 12/25/23 20:00 97.7 F 76 16 98/65 98 12/25/23 12:25 97.6 F 97 16 119/77 99 12/25/23 11:00 80 18 113/70 98 12/25/23 09:45 92 18 102/68 98 12/25/23 08:31 97.8 F 130 H 20 118/78 99 Intake and Output 12/25/23 12/25/23 12/25/23 06:59 14:59 22:59 Other: Voiding Method Toilet Toilet # Voids 1 Weight 84.822 kg Vital signs are stable. General: No acute distress. HEENT: Head exam is unremarkable. LUNGS: No audible rhonchi or wheezes. HEART: Rate and Rhythm are regular. ABDOMEN: Nontender. EXTREMITITES: No edema. Results - Lab Results Most recent lab results Calcium 8.8 mg/dL (8.4-10.2) 12/25/23 10:24 12/25/23 09:07 12/26/23 14:31 Assessment and Plan Assessment: 1. Metabolic acidosis, - high anion gap metabolic acidosis secondary to starvation ketoacidosis with (+) serum acetone and urine ketones. Additional non anion gap metabolic acidosis due to normal saline infusion. No diarrhea. Denies etoh intake; no evidence of lactic acidosis; volative screen negative; salicylate level not high. Improving with bicarb drip and improved oral intake. 2. Intractable nausea vomiting. Improved. Likely from zepbound. Plan: maintain bicarb drip for now - repeat cmp at 2pm if bicarb >20 and she can tolerate oral intake she can go - repeat bmp 2-3 days after d/c f/u with pcp in 1 week Kidney and bladder ultrasound showed no hydronephrosis. No specific abnormality seen. I have seen and examined patient with resident and agree with A&P as written.
[2023-12-26 10:09] VITALS: RESP 17
[2023-12-26 12:58] LABS: Glucose,Whole Blood 88 mg/dL (70-110)
[2023-12-26 12:58] LABS: Glucose,Whole Blood 85 mg/dL (70-110)
--- NOTE | 2023-12-26 14:10 | P.PN ---
Subjective Progress Note Date: 12/26/23 HISTORY OF PRESENT ILLNESS: 38-year-old with active medical history of mild obesity, hyperglycemia, mild ADD, anxiety, depression, who apparently was started on GLP-1 product few months ago for some weight loss did not get the medication initially last week found it at the pharmacy for zepbound 5 mg weekly. She took the first dose a week ago did not feel well has slight side effect and symptom consistent with change in bowel habit mild diarrhea bloating sensation and nausea But eventually her symptoms had improved. This week patient has taking it on Friday and ended up for the last 48 hours having persistent sign and symptom of intractable nausea vomiting slight abdominal discomfort with severe diarrhea with worsening symptoms on and off generalized weakness fatigue not been able to ambulate or walk symptom become much worse ended up coming to the emergency department at [facility] were seen and evaluated. At the presentation her hematocrit was 46.4 with chloride was 114 carbon dioxide was 10 with originally normal lactic acid blood sugar was quite bit low at 57. Patient was hydrated and treated for several hours with reassessment done by the emergency room continue to show significant low carbon dioxide level patient is not improving down much she still having difficult time ambulating and difficult time leaving her bed and having severe intractable nausea requiring antiemetic medication every few hours to keep her symptoms under control. We decided to keep patient hydrated admit patient to the hospital at this point we will watch for any further complication. 12/26/2023: Patient is feeling much better today not having any further nausea or vomiting Will see nephrology early her lab value showing her carbon dioxide is up to 16.3 with anion gap still high at 12.7 but better than yesterday. Patient again is not symptomatic she is still running pretty normal sugar below 100 but not hypoglycemic per definition. Was able to eat and drink we will continue sodium bicarbonate to try IV fluid and when patient discharged from the hospital she will be on sodium bicarbonate for the next 10 days to 2 weeks and she will be having her lab repeated again in the next few days in office. Talk with patient and her the plan was to draw another set of lab at 2:00 in the afternoon and see if her carbon dioxide is at least above 20 and anion gap drop below 10 we should be able to let her go home to follow-up as an outpatient. REVIEW OF SYSTEMS: CONSTITUTIONAL: Well-developed no acute respiratory distress. EYES: No icterus sclerae, no conjunctivitis. EARS, NOSE, MOUTH, THROAT, and FACE: No sore throat, lymphadenopathy, carotid bruits or deformity. RESPIRATORY: No SOB cough or wheezes. CARDIOVASCULAR: No CP, Palpitation, PND, Orthopnea, or angina. GASTROINTESTINAL: Abdominal discomfort nausea and vomiting positive diarrhea. GENITOURINARY: Negative for Hematuria or UTI, no kidney stones. INTEGUMENT/BREAST: Negative for any muscular injury with mild osteoarthritis.. HEMATOLOGIC/LYMPHATIC: Negative for bleed or purpura. MUSCULOSKELTAL: Negative for Myalgia or arthralgia. NEURLOGICAL: No LOC, Sz or syncope, blurred vision dizziness or abnormality.. BEHAVIORAL/PSYCH: Negative. ENDOCRINE: Negative. PHYSICAL EXAMINATION: General Appearance: Alert, cooperative, no distress, appears stated age. Neck HEENT: Supple, no lymphadenopathy, no thyroid enlargement, no carotid bruits. Lungs: Clear to auscultation without crackles or wheezes no rhonchi, no deformity. Chest Wall: Chest wall normal expansion with deep inspiration no tenderness and no deformity was found on exam, no costochondral pain or discomfort. Heart: Regular rate and rhythm, S1, S2 normal, no murmur, rub or gallop. Back: Symmetric, no curvature, ROM normal, no CVA tenderness. Abdomen: Soft positive bowel sounds slight discomfort epigastric no rebound rigidity or masses. Extremities: Extremities normal, atraumatic, no cyanosis or edema. Pulses: 2+ and symmetric. Skin: Skin color, texture, tugor normal, no rashes or lesions. Neurologic: Alert oriented x3 cranial nerves II through XII intact, no motor deficit, no abnormal balance or gait. ASSESSMENT AND PLAN: _Intractable nausea vomiting diarrhea: Symptoms most likely secondary to GLP-1 product with mostly Zepbound medication be stopped for now we will watch patient's symptoms carefully continue hydration and antiemetic medication. _Severe metabolic acidosis with high anion gap most likely from the ketoacidosis ongoing with the Zepbound will continue patient on hydration for now continue IV bicarbonate for few more hours. _Severe low carbon dioxide level and with metabolic acidosis and severely abnormal anion gap: Continue hydration again watch symptoms carefully will consult nephrology. Adding sodium Bicarbonate will be more helpful. _Severe hypoglycemia: Most likely caused by the GLP-1 product will continue Accu-Chek sliding scales coverage continue hydration currently and continue D5.45 specially if she is low. Continue again IV with D5 at least till the afternoon. _Mild ADD: Has been on Adderall XR 20 mg daily continue medication. _ Depression: Continue Zoloft at 100 mg daily. _Severe gastritis: Will continue pantoprazole 40 mg IV continue Compazine and Zofran IV as well to control symptoms. _Significant hematuria with significant amount of white blood cell in the urine this is probably could be side effect again from the medication patient is not symptomatic with any UTI, before initiate or continue antibiotic will repeat pro bably UA today. Discharge planning: Repeat UA and repeat CMP at 2:00 in the afternoon if her specimen showing much better sodium bicarbonate and lower anion gap patient be able to be discharged home if UA showing any sign of UTI patient be discharged with oral antibiotic for Ceftin for few days. Objective - Vital Signs Vital signs: Vital Signs Temp 97.7 F 12/26/23 07:33 Pulse 94 12/26/23 07:33 Resp 17 12/26/23 07:33 BP 111/75 12/26/23 07:33 Pulse Ox 98 12/26/23 07:33 FiO2 Intake & Output 12/25/23 12/26/23 12/26/23 18:59 06:59 18:59 Weight 84.822 kg Other: Voiding Method Toilet Toilet Toilet # Voids 2 - Labs CBC & Chem 7: 12/25/23 09:07 12/26/23 02:55 Labs: Abnormal Lab Results - Last 24 Hours (Table) 12/25/23 12/25/23 12/25/23 Range/Units 17:36 17:39 17:39 Carbon Dioxide (21.6-31.8) mmol/L Anion Gap (4.00-12.00) mmol/L BUN (9.0-27.0) mg/dL Creatinine (0.6-1.5) mg/dL BUN/Creatinine Ratio (12.00-20.00) Ratio POC Glucose (mg/dL) 56 L (70-110) mg/dL Plasma Lactic Acid Junaid <0.5 L (0.7-2.0) mmol/L Calcium (8.7-10.3) mg/dL Total Protein (6.2-8.2) g/dL Acetone, Qual 10 H (Negative) mg/dL 12/25/23 12/26/23 Range/Units 18:06 02:55 Carbon Dioxide 16.3 L (21.6-31.8) mmol/L Anion Gap 12.70 H (4.00-12.00) mmol/L BUN <3.5 L (9.0-27.0) mg/dL Creatinine 0.5 L (0.6-1.5) mg/dL BUN/Creatinine Ratio <7.00 L (12.00-20.00) Ratio POC Glucose (mg/dL) 61 L (70-110) mg/dL Plasma Lactic Acid Junaid (0.7-2.0) mmol/L Calcium 8.4 L (8.7-10.3) mg/dL Total Protein 5.8 L (6.2-8.2) g/dL Acetone, Qual (Negative) mg/dL
[2023-12-26 15:05] VITALS: BP 108/74; PULSE 105; TEMP 98.6
[2023-12-26 15:06] LABS: ALT 17 U/L (4-34); AST 22 U/L (14-36); African American GFR (CKD) >90 (>60 ml/min/1.73 sqM); Albumin 3.7 g/dL (3.5-5.0); Albumin/Globulin Ratio 1.6; Alkaline Phosphatase 91 U/L (38-126); Anion Gap 9 mmol/L; Blood Urea Nitrogen <2 mg/dL (7-17); Calcium 9.2 mg/dL (8.4-10.2); Carbon Dioxide 22 mmol/L (22-30); Chloride 106 mmol/L (98-107); Globulin 2.3 g/dL; Glucose 104 mg/dL (74-99); Non-African American GFR(CKD) >90 (>60 ml/min/1.73 sqM); Potassium 3.3 mmol/L (3.5-5.1); Sodium 137 mmol/L (137-145); Total Bilirubin 0.5 mg/dL (0.2-1.3)
[2023-12-26] MEDS: POTASSIUM CHLORIDE ER 20 MEQ TAB.ER PO STA (16:05)
[2023-12-26 16:24] LABS: Appearance,Urine Clear (Clear); Bilirubin,Urine Negative (Negative); Blood,Urine Small (Negative); Color,Urine Colorless; Glucose,Urine (UA) Negative (Negative); Ketones,Urine 3+ (Negative); Leukocyte Esterase,Urine Negative (Negative); Mucus,Urine Rare /hpf; Nitrite,Urine Negative (Negative); Protein,Urine Negative (Negative); RBC,Urine <1 /hpf (0-5); Specific Gravity,Urine 1.006 (1.001-1.035); Squamous Epithelial Cell,Urine 1 /hpf (0-4); Urobilinogen,Urine <2.0 mg/dL (<2.0); WBC,Urine <1 /hpf (0-5)
== END 2023-12-26 17:11 | disposition home or self-care (01) ==
LOC: EC 08:29 → 6NMEDSUR 11:36
PROVIDERS: ADMIT Internal Medicine Geriatric Medicine; ATTEND Internal Medicine Geriatric Medicine
DX: E87.21 Acute metabolic acidosis (principal); E16.2 Hypoglycemia, unspecified; E87.29 Other acidosis; R73.9 Hyperglycemia, unspecified; R19.7 Diarrhea, unspecified; K29.70 Gastritis, unspecified, without bleeding; F90.9 Attention-deficit hyperactivity disorder, unspecified type; R31.9 Hematuria, unspecified; F41.9 Anxiety disorder, unspecified; F32.A Depression, unspecified; E66.9 Obesity, unspecified; Z68.34 Body mass index [BMI] 34.0-34.9, adult; Z79.82 Long term (current) use of aspirin; Z79.899 Other long term (current) drug therapy
CPT/HCPCS: 36415; 71046; 74018; 76770; 80053; 80179; 81001; 82150; 83605; 83690; 83735; 84484; 84600; 84702; 85025; 93005; 96365; 96375; 96376; 99285

== ENCOUNTER → 2024-01-22 | Outpatient (CLI) | payer BC ==
--- NOTE | 2024-01-23 18:57 | MM ---
Reason for Exam: Screening (asymptomatic). Baseline mammogram. Patient History: Menarche at age 15. First Full-Term at age 26. Premenopausal. Patient has history of breast feeding. Last menstrual period: 12/29/2023 Risk Values: Nicolette 5 year model risk: 0.4%. NCI Lifetime model risk: 9.2%. Prior Study Comparison: Patient's first Mammogram. Tissue Density: The breasts are heterogeneously dense, which may obscure small masses. Findings: Analyzed By CAD. No significant mass, suspicious microcalcification, or other discrete abnormality is seen. Areas of asymmetric density do not persist on 3-D images. Overall Assessment: Benign, BI-RAD 2 Management: Screening Mammogram of both breasts in 1 year. The patient indicates having a history of bloody nipple discharge during breast-feeding. Breast-feeding was discontinued May 2023 with no additional episodes. If there is any recurrent bloody nipple discharge, further evaluation such as with breast ultrasound may be indicated. Patient should continue monthly self-breast exams. A clinical breast exam by your physician is recommended on an annual basis. This exam should not preclude additional follow-up of suspicious palpable abnormalities. Note on Nicolette scores and lifetime risk: 1. A Nicolette score greater than 3% is considered moderate risk. If this is the case, consider specialist referral to assess eligibility for a risk reducing agent. 2. If overall lifetime risk for the development of breast cancer is 20% or higher, the patient may qualify for future screening with alternating mammogram and breast MRI. [facility], , 01/23/2024 6:54 PM. Electronically signed and approved by: Armaan Jain M.D. Radiologist
== END | disposition home or self-care (01) ==
LOC: RADMAMWWP 09:34
PROVIDERS: ATTEND Obstetrics & Gynecology
CPT/HCPCS: 77063; 77067

== ENCOUNTER → 2024-07-28 | Outpatient (CLI) | payer BC ==
--- NOTE | 2024-07-28 20:50 | XR ---
EXAMINATION TYPE: XR chest 2V DATE OF EXAM: 07/28/2024 4:28 PM COMPARISON: 12/25/2023 CLINICAL INDICATION: Female, 39 years old with history of R05.9 Cough, , TECHNIQUE: Frontal and lateral views FINDINGS: The cardiomediastinal silhouette, aorta, and pulmonary vasculature are within normal limits. Lungs an d pleural spaces are clear. IMPRESSION: No acute cardiopulmonary process. [facility], , 07/28/2024 8:48 PM
== END | disposition home or self-care (01) ==
LOC: RADXRMAIN 16:06
PROVIDERS: ATTEND Internal Medicine Geriatric Medicine
DX: R05.9 Cough, unspecified (principal)
CPT/HCPCS: 71046